=== PATIENT | female | born 1985 | race Caucasian/White ===

== ENCOUNTER 2017-04-26 20:41 | Inpatient (IN) ==
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
[2017-04-26 20:59] LABS: Basophils # 0.1 K/mcL (0.0-0.2); Basophils % 0.6 %; Eosinophils # 0.6 K/mcL (0.0-0.6); Eosinophils % 5.7 %; Hematocrit 42.3 % (35.3-44.9); Hemoglobin 14.2 g/dL (11.5-15.4); Immature Granulocytes % 0.4 % (0-4); Lymphocytes # 3.1 K/mcL (0.6-4.6); Lymphocytes % 30.9 %; Mean Corpuscular HGB Conc 33.6 g/dL (31.6-35.5); Mean Corpuscular Hemoglobin 28.3 pg (28.0-33.3); Mean Corpuscular Volume 84.4 fL (83.0-100.0); Mean Platelet Volume 8.9 fL (9.4-12.4); Monocytes # 0.7 K/mcL (0.0-1.3); Monocytes % 7.5 %; Neutrophils # 5.5 K/mcL (1.6-8.9); Platelet Count 434 K/mcL (140-400); Red Blood Count 5.01 M/mcL (3.82-4.97); Red Cell Distribution Width 14.3 % (11.5-14.5); Segmented Neutrophils % 54.9 %
[2017-04-26 21:14] LABS: BUN/Creatinine Ratio 9 (6-26); Blood Urea Nitrogen 7 mg/dL (6-20); Calcium 9.6 mg/dL (8.6-10.3); Carbon Dioxide 23 mEq/L (23-29); Chloride 106 mEq/L (98-107); Glucose 97 mg/dL (70-105); Osmolality,Calculated 282 (280-300); Potassium 3.5 mEq/L (3.5-5.1); Sodium 137 mEq/L (136-145); eGFR For Non-African Americans > 60 (> 60)
[2017-04-26 21:15] LABS: Acetaminophen < 1.0 mcg/mL (10-30); Ethanol < 10 mg/dL (0-10); Salicylate < 5.0 mg/dL (15.0-30.0)
[2017-04-26 21:33] LABS: Bilirubin,Urine Negative (Negative); Blood,Urine Large (Negative); Clarity,Urine Cloudy (Clear); Color,Urine Red (Yellow); Glucose,Urine (UA) Normal (Normal); Ketones,Urine Trace mg/dL (Negative); Leukocyte Esterase,Urine Moderate (Negative); Nitrite,Urine Negative (Negative); Protein,Urine 30 mg/dL (Neg-Trace); Specific Gravity,Urine 1.016 (1.010-1.025); Urobilinogen,Urine Normal (Normal)
[2017-04-26 21:40] LABS: Bacteria,Urine None Seen per hpf (None-Few); Hyaline Casts,Urine None Seen per lpf (None-Few); RBC,Urine TNTC per hpf (0-3); Squamous Epithelial Cell,Urine Many per lpf (None-Few); WBC,Urine 30-50 per hpf (0-3)
[2017-04-26 21:42] LABS: Amphetamine Screen,Urine Negative ng/mL (Cutoff=1000); Barbiturate Screen,Urine Negative ng/mL (Cutoff=200); Benzodiazepines Screen,Urine Negative ng/mL (Cutoff=200); Cannabinoid Screen,Urine Negative ng/mL (Cutoff = 50); Cocaine Screen,Urine Negative ng/mL (Cutoff= 300); Opiate Screen,Urine Negative ng/mL (Cutoff=300); Phencyclidine Screen,Urine Negative ng/mL (Cutoff=25)
[2017-04-26 22:03] LABS: Renal Epithelial Cells,Urine Few per hpf (None-Few); Transitional Epi Cells,Urine Few per hpf (None-Few)
--- NOTE | 2017-04-26 23:08 | Emergency Department Note ---
START Narrative - START START: acceptd sign out from Dr. Reed and plan is to followup on 1A reccomendations, she has been medically cleared 1A has accepted patient.
[2017-04-26] MEDS ORDERED: *HR* LORazepam 2 MG/ML VIAL IM PRN (23:36)
[2017-04-26] MEDS ORDERED: Acetaminophen 325 MG TABLET PO PRN (23:36)
[2017-04-26] MEDS ORDERED: *HR* LORazepam 1 MG TABLET PO PRN (23:36)
[2017-04-26] MEDS ORDERED: Haloperidol Lactate 5 MG/ML VIAL IM PRN (23:36)
[2017-04-26] MEDS ORDERED: Mag Hydrox/Al Hydrox/Simeth 30 ML UDC PO PRN (23:36)
[2017-04-27] MEDS: traZODone 50 MG TABLET PO PRN ×2 (01:07→20:17)
[2017-04-27] MEDS: hydrOXYzine pamoate 25 MG CAPSULE PO PRN ×2 (01:07→23:30)
[2017-04-27] MEDS ORDERED: BuPROPion XL (24 HR) 150 MG TABLET PO SCH (09:00)
--- NOTE | 2017-04-27 12:00 | Psychiatry History & Physical ---
Date of Encounter: 04/27/17 Time of Encounter: 11:45 History of Present Illness Patient Stated Chief Complaint: "I feel like hurting my mom" Medicare Admission Attestation: For traditional Medicare patients the provided hospital inpatient services are reasonable and necessary and in the case of services not specified as inpatient -only under 42 CFR 419.22 (n), that they are appropriately provided as inpatient services in accordance 42 CFR 412.3. For Critical Access Hospital the patient may reasonably be expected to be discharged or transferred to a hospital within 96 hours after admission to the Critical Access Hospital. Admitted From: Emergency Dept Plans for Post Hospital Care: Home History of Present Illness: Ms. Farr is a 31 year old female with a history of depression and anxiety as well as learning disabilities who presented to the hospital after increasing irritability and depression. Patient is somewhat of a poor historian but reports that prior to admission she was arguing with her mother and this was a hard man about a friend who she wanted to have over. Mom apparently did not want her to have this person over to the house. She became agitated and was threatening to leave the house. The recovery collector were called and patient was brought to the hospital. Patient apparently identifies as bisexual and feels judged by her family because they are very anabaptist. Patient reports increasing tearfulness and mood lability. She did report initially that she wanted to kill herself but states that she does not really want to . She does admit to having thoughts of suicide in the past. She also admits to a history of self -harm which is usually burning herself. She denies any recent self-harm. She denies auditory or visual hallucinations. She does report difficulty falling asleep and often stays asleep once she actually goes to bed. Patient still endorses thoughts of wanting to hurt her mother and sister. She describes the intensity of these thoughts down to "89%." She does report a history of learning disabilities but is not sure what exactly they are. She does struggle with reading and writing. She is a little bit better at math. She is currently also security disability but is not exactly sure why. She did graduate high school but was unable to hold down a job when she graduated. She does smoke but denies illicit drug use. She very rarely drinks alcohol. Patient would like help with her feelings. She is going to try adjustments in her medications. She has not seen a psychiatrist in the past and she has no previous psychiatric admissions. Patient reports that she was recently started on Wellbutrin to replace Abilify but she thinks the Wellbutrin may be causing her to feel more angry. Past Med Surg Social Fam HX - Past Medical History Medical history: no medical history - Past Psychiatric History Psychiatric history: Reports: anxiety, depression. Denies: prior suicide attempt, previous psychiatric hospitalization Past psychiatric history details: Patient reports she gets her meds through her primary doctor [place]. She denies inpatient admissions. She denies history of suicide attempts. Family Psychiatric History Details: Dad has depression and mom has anxiety. Family History of Suicide: Attempted (Dad) - Past Surgical History Surgical History: no surgical history - Social History Smoking Status: Current every day smoker Packs per day: 1 ppd Smokeless Tobacco Status: No Alcohol use: none Drug use: none Occupational status: disabled Current living situation: Home, With Family Recent Out of Country Travel Within the Last 8 Weeks: No Exposure or Possible Exposure to Illness During Travel: No Medications & Allergies ARIPiprazole [Abilify] 2 mg PO DAILY 04/27/17 [History] BuPROPion XL (24 HR) [Wellbutrin XL] 300 mg PO DAILY 04/27/17 [History] fluvoxaMINE [Luvox] 100 mg PO DAILY 04/27/17 [History] 3 Allergy/AdvReac Type Severity Reaction Status Date / Time No Known Allergies Allergy Verified 04/25/17 21:34 Review of Systems Constitutional: Denies: fever, chills, weakness, weight change Eyes: Denies: eye pain, vision change Ears, Nose, Throat: Denies: ear pain, throat pain, dental pain, hearing loss, congestion Cardiovascular: Denies: chest pain, palpitations, dyspnea on exertion Respiratory: Denies: cough, dyspnea, wheezes Gastrointestinal: Denies: abdominal pain, nausea, vomiting, diarrhea, constipation Genitourinary male: Denies: urgency, dysuria, frequency, genital lesions Genitourinary female: Denies: urgency, dysuria, frequency, abnormal menses, dyspareunia Musculoskeletal: Denies: joint swelling, joint pain Integumentary: Denies: rash, lesions, pruritus Neurological: Denies: headache, weakness, numbness, memory loss Psychiatric: Reports: depression, abnormal sleep pattern, suicidal ideation, anhedonia, mood swings, other (thoughts of hurting mom and sister ) Endocrine: Denies: fatigue, heat or cold intolerance Hematologic/Lymphatic: Denies: easy bruising, lymphadenopathy Allergic/Immunologic: Denies: urticaria, itchy eyes Mental Status Exam Patient orientation: Yes Person, Yes Time, Yes Place Level of alertness: Alert Behavior: calm, cooperative, guarded Eye contact: Minimal Contact Mood description: Depressed Affect description: constricted Speech pattern: Normal tone, Slowed Speech volume: Normal Thought process: [place] Thought content: No Suicidal ideation, Yes Homicidal ideation (Reports thoughts about hurting her mom and her sister.) Perceptual disturbances: No Reacting to internal stimuli, No Auditory hallucinations, No Visual hallucinations Attention span: Capable of Focused Attention Memory description: Grossly Intact Patient reliability: Questionable Historian Intelligence estimate: Below Average Judgment: Limited Insight: Minimal Exam - HEENT Head exam IM: Present: atraumatic, normocephalic Eye exam IM: Present: EOMI - Neurological Neurological exam IM: Present: CN II-XII intact, normal gait - Respiratory Respiratory exam IM: Present: CTAB - Extremities Extremities exam IM: Present: full ROM - Skin Skin exam IM: Present: dry, warm Results - Vital Signs Vital signs: Temp Pulse Resp BP Pulse Ox 98 F 90 18 100/75 99 04/27/17 09:00 04/27/17 09:00 04/27/17 09:00 04/27/17 09:00 04/26/17 20:43 - Labs Labs: Laboratory Last Values WBC 9.9 K/mcL (4.3-11.1) 04/26/17 20:50 RBC 5.01 M/mcL (3.82-4.97) H 04/26/17 20:50 Hgb 14.2 g/dL (11.5-15.4) 04/26/17 20:50 Hct 42.3 % (35.3-44.9) 04/26/17 20:50 MCV 84.4 fL (83.0-100.0) 04/26/17 20:50 MCH 28.3 pg (28.0-33.3) 04/26/17 20:50 MCHC 33.6 g/dL (31.6-35.5) 04/26/17 20:50 RDW 14.3 % (11.5-14.5) 04/26/17 20:50 Plt Count 434 K/mcL (140-400) H 04/26/17 20:50 MPV 8.9 fL (9.4-12.4) L 04/26/17 20:50 Immature Gran % 0.4 % (0-4) 04/26/17 20:50 Seg Neutrophils % 54.9 % 04/26/17 20:50 Lymphocytes % 30.9 % 04/26/17 20:50 Monocytes % 7.5 % 04/26/17 20:50 Eosinophils % 5.7 % 04/26/17 20:50 Basophils % 0.6 % 04/26/17 20:50 Neutrophils # 5.5 K/mcL (1.6-8.9) 04/26/17 20:50 Lymphocytes # 3.1 K/mcL (0.6-4.6) 04/26/17 20:50 Monocytes # 0.7 K/mcL (0.0-1.3) 04/26/17 20:50 Eosinophils # 0.6 K/mcL (0.0-0.6) 04/26/17 20:50 Basophils # 0.1 K/mcL (0.0-0.2) 04/26/17 20:50 Sodium 137 mEq/L (136-145) 04/26/17 20:50 Potassium 3.5 mEq/L (3.5-5.1) 04/26/17 20:50 Chloride 106 mEq/L (98-107) 04/26/17 20:50 Carbon Dioxide 23 mEq/L (23-29) 04/26/17 20:50 BUN 7 mg/dL (6-20) 04/26/17 20:50 Creatinine 0.82 mg/dL (0.60-1.20) 04/26/17 20:50 Est GFR ( Amer) > 60 (> 60) 04/26/17 20:50 Est GFR (Non-Af Amer) > 60 (> 60) 04/26/17 20:50 BUN/Creatinine Ratio 9 (6-26) 04/26/17 20:50 Glucose 97 mg/dL (70-105) 04/26/17 20:50 Calculated Osmolality 282 (280-300) 04/26/17 20:50 Calcium 9.6 mg/dL (8.6-10.3) 04/26/17 20:50 Ur Specimen Adequacy See below A 04/26/17 21:20 Urine Color Red (Yellow) A 04/26/17 21:20 Urine Clarity Cloudy (Clear) A 04/26/17 21:20 Urine pH 6.0 pH Units (5.0-8.0) 04/26/17 21:20 Ur Specific [place] 1.016 (1.010-1.025) 04/26/17 21:20 Urine Protein 30 mg/dL (Neg-Trace) H 04/26/17 21:20 Urine Glucose (UA) Normal mg/dL (Normal) 04/26/17 21:20 Urine Ketones Trace mg/dL (Negative) H 04/26/17 21:20 Urine Blood Large (Negative) H 04/26/17 21:20 Urine Nitrite Negative (Negative) 04/26/17 21:20 Urine Bilirubin Negative (Negative) 04/26/17 21:20 Urine Urobilinogen Normal mg/dL (Normal) 04/26/17 21:20 Ur Leukocyte Esterase Moderate (Negative) H 04/26/17 21:20 Urine Microscopic RBC TNTC per hpf (0-3) H 04/26/17 21:20 Urine Microscopic WBC 30-50 per hpf (0-3) H 04/26/17 21:20 Ur Squamous Epith Cells Many per lpf (None-Few) H 04/26/17 21:20 Ur Transition Epith Cell Few per hpf (None-Few) 04/26/17 21:20 Ur Renal Epithelial Cell Few per hpf (None-Few) 04/26/17 21:20 Urine Bacteria None Seen per hpf (None-Few) 04/26/17 21:20 Hyaline Casts None Seen per lpf (None-Few) 04/26/17 21:20 Salicylates < 5.0 mg/dL (15.0-30.0) L 04/26/17 20:50 Urine Opiates Screen Negative ng/mL (Awmpps=825) 04/26/17 21:20 Acetaminophen < 1.0 mcg/mL (10-30) L 04/26/17 20:50 Ur Barbiturates Screen Negative ng/mL (Ecnlcr=513) 04/26/17 21:20 Ur Phencyclidine Scrn Negative ng/mL (Cutoff=25) 04/26/17 21:20 Ur Amphetamines Screen Negative ng/mL (Apkblr=9318) 04/26/17 21:20 U Benzodiazepines Scrn Negative ng/mL (Osyelj=205) 04/26/17 21:20 Urine Cocaine Screen Negative ng/mL (Cutoff= 300) 04/26/17 21:20 U Marijuana (THC) Screen Negative ng/mL (Cutoff = 50) 04/26/17 21:20 Ethyl Alcohol < 10 mg/dL (0-10) 04/26/17 20:50 Assessment and Plan (1) Major depressive disorder, recurrent, severe w/o psychotic behavior Current visit: Yes Status: Acute Plan: Admit inpatient for safety and stabilization, Close observation, Suicide Precautions per unit protocol, Encourage participation in unit milieu, Group Therapy, Monitor sleep, Monitor appetite Additional Plan: Patient has a history of depression currently untreated. Also has very poor coping strategies to deal with stressors. We will transition patient to Prozac for her mood symptoms. Encourage appropriate sleep and self-care. Encourage group attendance and individual counseling for coping strategies. Risks, benefits, side effects, alternatives discussed w/pt: Yes Patient agreeable to treatment: Yes Plans for Post Hospital Care: Home Estimated Length of Stay (Days): 3 (2) Borderline intellectual functioning Current visit: Yes Status: Acute Plan: Close observation Additional Plan: This may be contributing to her ability to cope well with stressors.
[2017-04-27] MEDS: Nicotine 21 MG PATCH.TD24 TD SCH (13:37)
[2017-04-27] MEDS: FLUoxetine 20 MG CAPSULE PO SCH (16:13)
[2017-04-28] MEDS: FLUoxetine 20 MG CAPSULE PO SCH (09:15)
[2017-04-28] MEDS: Nicotine 2 MG GUM BC PRN ×3 (09:55→21:58)
[2017-04-28] MEDS: Nicotine 21 MG PATCH.TD24 TD SCH (09:57)
--- NOTE | 2017-04-28 13:38 | Psychiatry Progress Note ---
Date of Encounter: 04/28/17 Time of Encounter: 09:55 Subjective Interval history: Patient is seen today for follow-up. She reports that her mood is about the same and she still has vague thoughts of wanting to hurt her mother and her sister. She feels judged by them and is angry at them for not letting her be around her "friend." Patient says that she has "90% thoughts of wanting to hurt people." She does report some difficulty sleeping as well. She denies suicidal ideations. She denies auditory or visual hallucinations. She was interested in attending groups and asked to be informed when the groups with the happening today. However, after getting invitations to groups she did not attend morning group. She denies side effects of her current meds. Review of Systems Psychiatric: Reports: depression, abnormal sleep pattern, anhedonia, mood swings , other (thoughts of hurting mom and sister ) Objective: Exam Patient orientation: Yes Person, Yes Time, Yes Place Level of alertness: Alert Patient appearance: Appropriate Behavior: calm, cooperative Psychomotor activity: Normal Eye contact: Maintains Eye Contact Mood description: Depressed Affect description: constricted Speech pattern: Normal rate, Normal rhythm, Normal tone Speech volume: Normal Thought process: Intact, [place], Slowed Thinking Thought content: Yes Intact (Reports thoughts of violence towards mom and sister ), No Suicidal ideation Perceptual disturbances: No Auditory hallucinations, No Visual hallucinations Judgment: Poor Insight: None Results - Vital Signs Vital Signs: Temp Pulse Resp BP Pulse Ox 97.4 F L 74 16 103/70 99 04/28/17 09:00 04/28/17 09:00 04/28/17 09:00 04/28/17 09:00 04/26/17 20:43 Assessment and Plan (1) Major depressive disorder, recurrent, severe w/o psychotic behavior Current visit: Yes Status: Acute Plan: Continue hospitalization, Close observation, Suicide Precautions per unit protocol, Encourage participation in unit milieu, Group Therapy, Monitor sleep, Monitor appetite Additional Plan: We will continue current meds for mood and increase medication to help with sleep. Consider cross taper of Luvox with an antidepressant. Encouraged patient to attend group and unit activities. Risks, benefits, side effects, alternatives discussed w/pt: Yes Patient agreeable to treatment: Yes (2) Borderline intellectual functioning Current visit: Yes Status: Acute Consult Discharge Plan - Plan Referrals: NONE,PCP [Primary Care Provider] -
[2017-04-28] MEDS ORDERED: MOM Conc 10 ML UD.LIQ PO PRN (16:35)
[2017-04-28] MEDS: traZODone 50 MG TABLET PO PRN (21:40)
[2017-04-28] MEDS: TRI SPRINTEC PO SCH (23:17)
[2017-04-29] MEDS: FLUoxetine 20 MG CAPSULE PO SCH (08:30)
[2017-04-29] MEDS: Nicotine 2 MG GUM BC PRN ×3 (08:32→17:28)
--- NOTE | 2017-04-29 16:48 | Psychiatry Progress Note ---
Date of Encounter: 04/29/17 Time of Encounter: 08:20 Subjective Interval history: Patient is seen today for follow-up. She states that she is 75% wants to hurt her mom right now. She is also agreeable to allowing her mom be part of her treatment and care. She verbalized to staff that she considers her mom her best friend and enjoys going shopping with her. Right now she is having trouble reconciling her anger about mom's need to control her life. Patient is willing to try adjusting Prozac slightly. She denies any SI. She denies sleep issues. She does attempt to participate in groups but does have some difficulty with certain concepts and being able to fully engage in treatment. Review of Systems Psychiatric: Reports: depression, abnormal sleep pattern, anhedonia, mood swings , other (thoughts of hurting mom and sister ) Objective: Exam Patient orientation: Yes Person, Yes Time, Yes Place, Yes Circumstance Level of alertness: Alert Patient appearance: Appropriate Behavior: calm, cooperative Psychomotor activity: Normal Eye contact: Minimal Contact Mood description: Depressed Affect description: constricted Speech pattern: Slowed Speech volume: Normal Thought process: [place], Slowed Thinking Thought content: No Suicidal ideation, Yes Homicidal ideation (Thoughts of violence towards mom) Perceptual disturbances: No Auditory hallucinations, No Visual hallucinations Judgment: Limited Insight: Minimal Results - Vital Signs Vital Signs: Temp Pulse Resp BP Pulse Ox 96.8 F L 79 16 98/68 99 04/29/17 09:00 04/29/17 09:00 04/29/17 09:00 04/29/17 09:00 04/26/17 20:43 Assessment and Plan (1) Major depressive disorder, recurrent, severe w/o psychotic behavior Current visit: Yes Status: Acute Plan: Continue hospitalization, Close observation, Suicide Precautions per unit protocol, Encourage participation in unit milieu, Group Therapy, Monitor sleep, Monitor appetite Additional Plan: We will increase Prozac slightly. Continue to encourage positive coping strategies and help patient verbalize her anger in other ways. Risks, benefits, side effects, alternatives discussed w/pt: Yes Patient agreeable to treatment: Yes (2) Borderline intellectual functioning Current visit: Yes Status: Acute Consult Discharge Plan - Plan Referrals: Alirio Morris [facility] [Outside] - 05/14/17 2:30 pm (The above appointment is with Maria Elena. When you come to your first appointment, you will be completing paperwork, meeting with a counselor, and developing a treatment plan. You will receive follow- up appointments for on-going services, which could include community support, mental health and substance abuse counseling, groups/partial hospitalization programming and medication assisted treatment. Please note, you will receive a new patient packet in the mail. Please complete that to the best of your ability and bring it with you to your first appointment. You will also need to bring the following to your first appointment as well: 1) proof of household income (two consecutive pay stubs, social security award letter, bank statement, statement letter from [facility], child support statement, IRS 1040 or W2 form, or a statement from the person who financially supports you stating they help provide for your basic needs), 2) proof of residency (drivers license , a piece of mail showing your address, a statement from person you live with verifying you live at their address), 3) your social security card, 4) photo ID , 5) your insurance card (if you have commercial insurance you must call to obtain a prior authorization number before you arrive to your first appointment ) and 6) if you do not have insurance but have applied for Medicaid, please bring verification you have applied. The above appointment(s) reflects first availability. You may contact the office regularly to check for cancellations that may allow you to be seen sooner.) Arturo Raphael [facility] [Outside] - 05/28/17 4:15 pm (The above appointment is with for Dr. Leatha Quiroz, psychiatrist, for outpatient psychiatric assessment and medication management services. Please arrive 15 minutes early to complete paperwork. Please bring your insurance card, photo ID and medications in their original bottles. If you do not have insurance, bring proof of income to apply for the sliding fee scale. If you are unable to keep this appointment, 24 hour business notice of cancellation is expected. The above appointment(s) reflects first availability. You may contact the office regularly to check for cancellations that may allow you to be seen sooner.)
[2017-04-29] MEDS: traZODone 50 MG TABLET PO PRN (20:54)
[2017-04-29] MEDS: TRI SPRINTEC PO SCH (21:44)
[2017-04-30] MEDS: FLUoxetine 20 MG CAPSULE PO SCH (08:30)
[2017-04-30] MEDS: TRI SPRINTEC PO SCH (08:35)
--- NOTE | 2017-04-30 09:42 | Psychiatry Progress Note ---
Date of Encounter: 04/30/17 Time of Encounter: 08:40 Subjective Interval history: Teather is a 31-year-old female who is seen today for follow-up. She states that her mood is a lot better today. She feels that she is less angry about things that happened with her and her mom. She denies thoughts about wanting to hurt herself or her family at this time. She states she is sleeping well. She continues to try to engage in group activities with minimal success because of her level of intellectual functioning. She denies side effects of her meds. Encouraged patient to visit with family this evening and patient states that she will do this. Review of Systems Constitutional: Denies: fever, chills, weakness, weight change Eyes: Denies: eye pain, vision change Ears, Nose, Throat: Denies: ear pain, throat pain, dental pain, hearing loss, congestion Cardiovascular: Denies: chest pain, palpitations, dyspnea on exertion Respiratory: Denies: cough, dyspnea, wheezes Gastrointestinal: Denies: abdominal pain, nausea, vomiting, diarrhea, constipation Musculoskeletal: Denies: joint swelling, joint pain Neurological: Denies: headache, weakness, numbness, memory loss Psychiatric: Reports: depression, anxiety, mood swings Objective: Exam Patient orientation: Yes Person, Yes Time, Yes Place Level of alertness: Alert Patient appearance: Appropriate Behavior: calm, cooperative Psychomotor activity: Normal Eye contact: Maintains Eye Contact Mood description: Euthymic/stable Affect description: constricted Speech pattern: Slowed Speech volume: Normal Thought process: [place], Slowed Thinking Thought content: No Suicidal ideation, No Homicidal ideation Perceptual disturbances: No Auditory hallucinations, No Visual hallucinations Judgment: Limited Insight: Minimal Results - Vital Signs Vital Signs: Temp Pulse Resp BP Pulse Ox 98.1 F 83 15 116/73 99 04/30/17 09:00 04/30/17 09:00 04/30/17 09:00 04/30/17 09:00 04/26/17 20:43 Assessment and Plan (1) Major depressive disorder, recurrent, severe w/o psychotic behavior Current visit: Yes Status: Acute Plan: Continue hospitalization, Close observation, Suicide Precautions per unit protocol, Encourage participation in unit milieu, Group Therapy, Monitor sleep, Monitor appetite Additional Plan: Continue current medications. Patient will be attempting to visit with family tomorrow. Plan for d/c tomorrow if patient remains stable. Risks, benefits, side effects, alternatives discussed w/pt: Yes Patient agreeable to treatment: Yes (2) Borderline intellectual functioning Current visit: Yes Status: Acute Consult Discharge Plan - Plan Referrals: Alirio Morris [facility] [Outside] - 05/14/17 2:30 pm (The above appointment is with Maria Elena. When you come to your first appointment, you will be completing paperwork, meeting with a counselor, and developing a treatment plan. You will receive follow- up appointments for on-going services, which could include community support, mental health and substance abuse counseling, groups/partial hospitalization programming and medication assisted treatment. Please note, you will receive a new patient packet in the mail. Please complete that to the best of your ability and bring it with you to your first appointment. You will also need to bring the following to your first appointment as well: 1) proof of household income (two consecutive pay stubs, social security award letter, bank statement, statement letter from [facility], child support statement, IRS 1040 or W2 form, or a statement from the person who financially supports you stating they help provide for your basic needs), 2) proof of residency (drivers license , a piece of mail showing your address, a statement from person you live with verifying you live at their address), 3) your social security card, 4) photo ID , 5) your insurance card (if you have commercial insurance you must call to obtain a prior authorization number before you arrive to your first appointment ) and 6) if you do not have insurance but have applied for Medicaid, please bring verification you have applied. The above appointment(s) reflects first availability. You may contact the office regularly to check for cancellations that may allow you to be seen sooner.) [facility] [Outside] - 05/28/17 4:15 pm (The above appointment is with for Dr. Leatha Quiroz, psychiatrist, for outpatient psychiatric assessment and medication management services. Please arrive 15 minutes early to complete paperwork. Please bring your insurance card, photo ID and medications in their original bottles. If you do not have insurance, bring proof of income to apply for the sliding fee scale. If you are unable to keep this appointment, 24 hour business notice of cancellation is expected. The above appointment(s) reflects first availability. You may contact the office regularly to check for cancellations that may allow you to be seen sooner.)
[2017-04-30] MEDS: Nicotine 2 MG GUM BC PRN ×4 (13:17→22:14)
[2017-04-30] MEDS: traZODone 50 MG TABLET PO PRN (20:42)
[2017-05-01] MEDS: FLUoxetine 20 MG CAPSULE PO SCH (08:56)
[2017-05-01] MEDS: TRI SPRINTEC PO SCH (08:58)
[2017-05-01 09:31] VITALS: BP 96/65
--- NOTE | 2017-05-01 10:17 | Discharge Summary ---
Date of Encounter: 05/01/17 Time of Encounter: 09:20 Diagnosis - Discharge Diagnosis (1) Major depressive disorder, recurrent, severe w/o psychotic behavior Priority: Primary Status: Acute (2) Borderline intellectual functioning Priority: Secondary Status: Acute Medications - Discharge Medications Prescriptions: FLUoxetine HCl [Prozac] 40 mg PO DAILY #60 capsule traZODone [TraZODone] 100 mg PO HS PRN #30 tablet PRN Reason: Insomnia ARIPiprazole [Abilify] 2 mg PO DAILY 04/27/17 [History] fluvoxaMINE [Luvox] 100 mg PO DAILY 04/27/17 [History] FLUoxetine HCl [Prozac] 40 mg PO DAILY #60 capsule 05/01/17 [Rx] Patient Taking Own Medication 1 each PO DAILY each 05/01/17 [Rx] traZODone [TraZODone] 100 mg PO HS PRN #30 tablet 05/01/17 [Rx] 3 Allergy/AdvReac Type Severity Reaction Status Date / Time No Known Allergies Allergy Verified 04/25/17 21:34 Provider Date of admission: 04/26/17 23:34 Primary care physician: PCP NONE Discharging clinician: Maryam Zamarripa Assessment and Plan - Patient/Caregiver Discharge Instructions Activity: resume usual activities as tolerated Diet: regular diet - Follow up Plan Follow up with: Alirio Morris [facility] [Outside] - 05/14/17 2:30 pm (The above appointment is with Maria Elena. When you come to your first appointment, you will be completing paperwork, meeting with a counselor, and developing a treatment plan. You will receive follow- up appointments for on-going services, which could include community support, mental health and substance abuse counseling, groups/partial hospitalization programming and medication assisted treatment. Please note, you will receive a new patient packet in the mail. Please complete that to the best of your ability and bring it with you to your first appointment. You will also need to bring the following to your first appointment as well: 1) proof of household income (two consecutive pay stubs, social security award letter, bank statement, statement letter from [facility], child support statement, IRS 1040 or W2 form, or a statement from the person who financially supports you stating they help provide for your basic needs), 2) proof of residency (drivers license , a piece of mail showing your address, a statement from person you live with verifying you live at their address), 3) your social security card, 4) photo ID , 5) your insurance card (if you have commercial insurance you must call to obtain a prior authorization number before you arrive to your first appointment ) and 6) if you do not have insurance but have applied for Medicaid, please bring verification you have applied. The above appointment(s) reflects first availability. You may contact the office regularly to check for cancellations that may allow you to be seen sooner.) [facility] [Outside] - 05/28/17 4:15 pm (The above appointment is with for Dr. Leatha Quiroz, psychiatrist, for outpatient psychiatric assessment and medication management services. Please arrive 15 minutes early to complete paperwork. Please bring your insurance card, photo ID and medications in their original bottles. If you do not have insurance, bring proof of income to apply for the sliding fee scale. If you are unable to keep this appointment, 24 hour business notice of cancellation is expected. The above appointment(s) reflects first availability. You may contact the office regularly to check for cancellations that may allow you to be seen sooner.) Functional capacity at discharge: independent ambulation Overall status at discharge: Stable Disposition: Home, Self-Care Hospital Course Hospital course: Ms. Farr is a 31 year old female with a history of depression and some lower cognitive functioning who presents to the hospital initially with depression and thoughts of wanting to hurt her family after argument. Patient was admitted to for psychiatric stabilization. She was incorporated into the therapeutic milieu and offer group and individual as well as recreational therapy. Patient was placed on suicide precautions per unit protocol. She was initially restarted on her home medication of Luvox and Abilify. She was not continued on Wellbutrin which was recently started. Patient had reported that this was making her more irritable. She was agreeable to starting a low-dose of Prozac in increasing this as tolerated for mood symptoms. Throughout the course of hospital stay the patient mood improved. She was cooperative and pleasant with staff. She did attempt to engage in unit activities at the level in which she was able to. She did at the beginning of the hospital stay reporting that she wanted to hurt her mom and sister but slowly as her mood improved these feelings began to go away. At the time of discharge patient denied suicidal or homicidal ideation, intent, or plan. She denied thoughts of violence towards others. Patient visited with family on the unit and was appropriate. Family was comfortable with her coming home to stay with them and she we will continue her medications as prescribed until she can follow up with her outpatient provider. She is discharged in stable condition. - Time Spent with Patient Total time spent providing and/or coordinating discharge services: Less than 30 minutes Quality - Multiple Antipsychotics Patient discharged on 2 or more antipsychotic medications: No Procedures - Procedures Procedures: Medication Management, Crisis Stabilization, Supportive Therapy, Group Therapy, Psychoeducational Therapy Mental Status Exam - Mental Status Exam Patient orientation: Yes Person, Yes Time, Yes Place Level of alertness: Alert Patient appearance: Appropriate, Well Groomed Behavior: calm, cooperative Psychomotor activity: Normal Eye contact: Maintains Eye Contact Mood description: Euthymic/stable Affect description: congruent with mood Speech pattern: Normal rate, Normal rhythm, Normal tone Speech Volume: Normal Thought process: Intact, Goal Oriented, [place] Thought Content: No Suicidal ideation, No Homicidal ideation, No Overt delusions Perceptual Disturbances: No Auditory hallucinations, No Visual hallucinations Judgment: Limited Insight: Minimal
== END 2017-05-01 13:20 | disposition home or self-care (01) | DRG 885 ==
LOC: EMEROO 20:41 → SUATTDRO 23:34 → 1ANU 23:34
PROVIDERS: ADMIT Psychiatry & Neurology Psychiatry; ATTEND Student in an Organized Health Care Education/Training Program